=== PATIENT | female | born 1975 | race African-American/Black ===

== ENCOUNTER 2020-08-03 00:28 | Inpatient (IN) ==
[2020-08-03 01:19] LABS: Albumin 2.1 G/DL (3.4-5.0); Bilirubin,Total 0.6 MG/DL (0.2-1.0); Calcium 8.7 MG/DL (8.5-10.1); Osmolality,Calculated 293.7 MOS/KG (273-304); Potassium 5.2 MMOL/L (3.5-5.1); Total Protein 7.1 G/DL (5.0-7.5)
[2020-08-03] MEDS ORDERED: FUROSEMIDE 40 MG/4 ML VIAL IV STA ×2 (01:41→02:52)
[2020-08-03 01:46] LABS: Basophils % 0.3 % (0.0-0.8); Eosinophils # 0.1 10*3/uL (0.0-0.87); Eosinophils % 0.7 % (0.00-10.9); Hematocrit 23.8 VOL% (35.7-47.0); Hemoglobin 7.2 GM/DL (12.0-16.0); Immature Granulocytes % 0.4 %; Immature Granulocytes Absolute 0.05 #; Lymphocytes % 7.7 % (21.3-54.2); Mean Corpuscular HGB Conc 30.3 GM/DL (32-36); Mean Corpuscular Volume 90.5 FL (87-102); Mean Platelet Volume 11.7 FL (9.6-12.0); Monocytes % 6.5 % (1.7-12.7); NRBC # 0.07 10*3/uL; Neutrophils % 84.4 % (38.7-73.9); Platelet Count 356 T/CUMM (130-400); Red Blood Count 2.63 MC/CUMM (3.8-5.5); White Blood Count 13.1 T/CUMM (4-12)
[2020-08-03] MEDS ORDERED: ASPIRIN EC 325 MG TABLET PO STA (01:57)
[2020-08-03] MEDS ORDERED: NITROGLYCERIN SL 0.4 MG TABLET SL STA (01:57)
[2020-08-03] MEDS ORDERED: INSULIN REGULAR 100 UNIT/ML IV STA (01:59)
[2020-08-03] MEDS ORDERED: ENOXAPARIN 30 MG/0.3 ML SYRINGE SUBCUT STA (01:59)
[2020-08-03] MEDS ORDERED: ENOXAPARIN 100 MG/ML SYRINGE SUBCUT STA (02:00)
[2020-08-03] MEDS ORDERED: LABETALOL 20 MG/4 ML SYRINGE IV STA (02:53)
[2020-08-03] MEDS ORDERED: ACETAMINOPHEN 325 MG TABLET PO PRN (03:21)
[2020-08-03] MEDS ORDERED: DEXTROSE 50% 25 GM/50 ML VIAL IV PRN (03:21)
[2020-08-03] MEDS ORDERED: hydrALAZINE 20 MG/1 ML VIAL IV PRN (03:21)
[2020-08-03] MEDS ORDERED: guaiFENesin/DM ER 600-30 MG TABLET PO PRN (03:21)
[2020-08-03] MEDS ORDERED: NICOTINE 21 MG/24 HR PATCH TRANSDERM PRN (03:21)
[2020-08-03] MEDS ORDERED: diphenhydrAMINE CAP 25 MG CAPSULE PO PRN (03:21)
[2020-08-03] MEDS ORDERED: ONDANSETRON 4 MG/2 ML VIAL IV PRN (03:21)
[2020-08-03] MEDS ORDERED: GLUCAGON 1 MG VIAL IM PRN (03:21)
[2020-08-03] MEDS ORDERED: MORPHINE 4 MG/1 ML VIAL IV PRN (03:21)
[2020-08-03] MEDS ORDERED: ALUMINUM/MAGNES/SIMETH MAX STR 30 ML UDCUP PO PRN (03:21)
[2020-08-03] MEDS: INSULIN REGULAR 100 UNIT/ML SUBCUT SCH ×3 (06:31→17:19)
[2020-08-03] MEDS ORDERED: SODIUM CHLORIDE 0.9% 1,000 ML IV PRN (07:06)
[2020-08-03] MEDS ORDERED: NITROGLYCERIN SL 0.4 MG TABLET SL ONE (07:07)
[2020-08-03] MEDS: ALBUTEROL/IPRATROPIUM 3 ML NEB RESP TX SCH ×3 (07:30→19:08)
[2020-08-03] MEDS: FUROSEMIDE 20 MG/2 ML VIAL IV SCH ×2 (08:28→15:30)
[2020-08-03] MEDS: amLODIPine 10 MG TABLET PO SCH (08:28)
[2020-08-03] MEDS: carvediloL 3.125 MG TABLET PO SCH ×2 (11:14→20:14)
[2020-08-03 11:28] LABS: Barbiturates Screen,Urine Negative (Negative); Benzodiazepines Screen,Urine Negative (Negative); Cannabinoid Screen,Urine Negative (Negative); Opiate Screen,Urine Negative (Negative); Phencyclidine Screen,Urine Negative (Negative)
[2020-08-03 11:29] LABS: Amorphous Crystals,Urine Occasional /HPF (Few); Bacteria,Urine Occasional /HPF (Few); Bilirubin,Urine Negative (Negative); Blood, Urine Moderate mg/dL (Negative); Glucose,Urine (UA) 150 mg/dL (Negative); Ketones,Urine Negative (Negative); Mucus,Urine Occasional /LPF (Occasional); Nitrite,Urine Negative (Negative); Protein,Urine >=500 MG/DL; RBC,Urine 12 /HPF (0-4); Squamous Epithelial Cell,Urine Occasional /HPF (0-10); Urine Appearance Slightly Hazy (Clear); Urine Color Yellow (Yellow); Urine Specific Gravity 1.011 (1.001-1.035); Urine Urobilinogen < 2.0 EU/DL (0.2-1.0); WBC,Urine 39 /HPF (0-6)
[2020-08-03 11:30] LABS: Albumin 1.9 G/DL (3.4-5.0); Bilirubin,Total 0.5 MG/DL (0.2-1.0); Calcium 8.1 MG/DL (8.5-10.1); Osmolality,Calculated 293.5 MOS/KG (273-304); Potassium 5.7 MMOL/L (3.5-5.1); Total Protein 6.3 G/DL (5.0-7.5)
[2020-08-03 11:39] LABS: Risk Ratio 3.38; VLDL CHOLESTEROL 14.2 MG/DL
[2020-08-03 11:53] LABS: Folate 14.8 NG/ML (5.38-24.0); Vitamin B12 1302 PG/ML (211-911)
[2020-08-03 12:23] LABS: Basophils % 0.1 % (0.0-0.8); Eosinophils % 0.3 % (0.00-10.9); Hematocrit 23.9 VOL% (35.7-47.0); Immature Granulocytes % 0.4 %; Immature Granulocytes Absolute 0.04 #; Lymphocytes # 0.9 10*3/uL (1.4-4.0); Lymphocytes % 8.5 % (21.3-54.2); Mean Corpuscular HGB Conc 29.3 GM/DL (32-36); Mean Corpuscular Volume 91.6 FL (87-102); Mean Platelet Volume 11.4 FL (9.6-12.0); Monocytes % 6.4 % (1.7-12.7); NRBC # 0.08 10*3/uL; Neutrophils % 84.3 % (38.7-73.9); Platelet Count 319 T/CUMM (130-400); Red Blood Count 2.61 MC/CUMM (3.8-5.5); Red Cell Distribution Width 15.1 % (9.3-17.3); White Blood Count 10.4 T/CUMM (4-12)
[2020-08-03 13:23] LABS: Sedimentation Rate-Westergren 110 MM/HR (0-20)
[2020-08-03] MEDS ORDERED: SODIUM POLYSTYRENE SULFATE 15 GM/60 ML BOTTLE PO ONE (14:15)
[2020-08-03 15:03] LABS: Protein/Creatinine Ratio,Urine 3.6 RATIO
[2020-08-03 15:12] LABS: Anisocytosis 2+; Elliptocytes Few; Hypochromasia 1+; Macrocytosis 2+; Microcytosis 1+; Platelet Estimate Normal; Poikilocytosis 1+; Polychromasia 1+; Schistocytes Few; Target Cells 1+
[2020-08-03] MEDS: ATORVASTATIN 20 MG TABLET PO SCH (20:14)
[2020-08-04] MEDS: INSULIN REGULAR 100 UNIT/ML SUBCUT SCH ×5 (00:49→23:50)
[2020-08-04] MEDS: ALBUTEROL/IPRATROPIUM 3 ML NEB RESP TX SCH ×4 (02:57→20:09)
[2020-08-04] MEDS: ENOXAPARIN 100 MG/ML SYRINGE SUBCUT SCH (03:19)
[2020-08-04 04:29] LABS: Calcium 8.3 MG/DL (8.5-10.1); Osmolality,Calculated 291.5 MOS/KG (273-304); Potassium 4.9 MMOL/L (3.5-5.1)
[2020-08-04 04:30] LABS: Parathyroid Hormone Intact 683.4 PG/ML (18.4-80.1)
[2020-08-04] MEDS: carvediloL 3.125 MG TABLET PO SCH ×2 (08:17→20:13)
[2020-08-04] MEDS: FUROSEMIDE 20 MG/2 ML VIAL IV SCH (08:17)
[2020-08-04] MEDS: amLODIPine 10 MG TABLET PO SCH (08:17)
[2020-08-04 09:01] LABS: Basophils % 0.2 % (0.0-0.8); Eosinophils # 0.3 10*3/uL (0.0-0.87); Eosinophils % 1.9 % (0.00-10.9); Hematocrit 27.6 VOL% (35.7-47.0); Hemoglobin 8.4 GM/DL (12.0-16.0); Immature Granulocytes % 0.5 %; Immature Granulocytes Absolute 0.06 #; Lymphocytes % 7.8 % (21.3-54.2); Mean Corpuscular HGB Conc 30.4 GM/DL (32-36); Mean Platelet Volume 11.3 FL (9.6-12.0); Monocytes % 6.9 % (1.7-12.7); NRBC # 0.14 10*3/uL; Neutrophils % 82.7 % (38.7-73.9); Platelet Count 318 T/CUMM (130-400)
[2020-08-04 09:14] LABS: Calcium 8.6 MG/DL (8.5-10.1); Osmolality,Calculated 289.7 MOS/KG (273-304); Potassium 4.7 MMOL/L (3.5-5.1)
[2020-08-04] MEDS: ASPIRIN EC 81 MG TABLET PO SCH (11:20)
[2020-08-04] MEDS ORDERED: metOLazone 5 MG TABLET PO ONE (12:17)
[2020-08-04] MEDS ORDERED: FUROSEMIDE 40 MG/4 ML VIAL IV SCH (16:00)
[2020-08-04] MEDS: FUROSEMIDE 40 MG/4 ML VIAL IV SCH (16:09)
[2020-08-04] MEDS: hydrALAZINE 25 MG TABLET PO SCH ×2 (16:09→20:12)
[2020-08-04] MEDS: ATORVASTATIN 20 MG TABLET PO SCH (20:12)
[2020-08-05] MEDS: ALBUTEROL/IPRATROPIUM 3 ML NEB RESP TX SCH ×2 (01:15→07:20)
[2020-08-05] MEDS: ENOXAPARIN 100 MG/ML SYRINGE SUBCUT SCH (04:46)
[2020-08-05 06:06] LABS: Basophils % 0.2 % (0.0-0.8); Eosinophils # 0.1 10*3/uL (0.0-0.87); Eosinophils % 1.3 % (0.00-10.9); Hemoglobin 6.9 GM/DL (12.0-16.0); Immature Granulocytes % 0.5 %; Immature Granulocytes Absolute 0.06 #; Lymphocytes % 8.8 % (21.3-54.2); Mean Corpuscular HGB Conc 28.8 GM/DL (32-36); Mean Corpuscular Volume 95.2 FL (87-102); Mean Platelet Volume 12.4 FL (9.6-12.0); Monocytes % 7.9 % (1.7-12.7); NRBC # 0.07 10*3/uL; Neutrophils % 81.3 % (38.7-73.9); Platelet Count 155 T/CUMM (130-400); Red Blood Count 2.52 MC/CUMM (3.8-5.5); Red Cell Distribution Width 19.3 % (9.3-17.3)
[2020-08-05] MEDS: INSULIN REGULAR 100 UNIT/ML SUBCUT SCH ×4 (06:12→23:20)
[2020-08-05 06:28] LABS: Hypochromasia 2+; Microcytosis 1+; Polychromasia Slight
[2020-08-05 06:29] LABS: Platelet Estimate Adequate
[2020-08-05 09:03] LABS: Calcium 7.7 MG/DL (8.5-10.1); Osmolality,Calculated 294.4 MOS/KG (273-304); Potassium 5.1 MMOL/L (3.5-5.1)
[2020-08-05] MEDS: FUROSEMIDE 40 MG/4 ML VIAL IV SCH ×2 (09:51→16:05)
[2020-08-05] MEDS: ASPIRIN EC 81 MG TABLET PO SCH (09:51)
[2020-08-05] MEDS: hydrALAZINE 25 MG TABLET PO SCH ×3 (09:51→20:52)
[2020-08-05] MEDS: carvediloL 3.125 MG TABLET PO SCH ×2 (09:51→20:52)
[2020-08-05] MEDS ORDERED: SODIUM CHLORIDE 0.9% 1,000 ML IV PRN (13:34)
[2020-08-05 20:48] LABS: Hemoglobin 8.2 GM/DL (12.0-16.0)
[2020-08-05] MEDS: ATORVASTATIN 20 MG TABLET PO SCH (20:52)
[2020-08-06] MEDS: ENOXAPARIN 100 MG/ML SYRINGE SUBCUT SCH (03:29)
[2020-08-06 04:44] LABS: Basophils % 0.2 % (0.0-0.8); Eosinophils # 0.2 10*3/uL (0.0-0.87); Eosinophils % 1.9 % (0.00-10.9); Hematocrit 27.3 VOL% (35.7-47.0); Hemoglobin 8.3 GM/DL (12.0-16.0); Immature Granulocytes % 0.5 %; Immature Granulocytes Absolute 0.06 #; Lymphocytes # 0.8 10*3/uL (1.4-4.0); Lymphocytes % 6.4 % (21.3-54.2); Mean Corpuscular HGB Conc 30.4 GM/DL (32-36); Mean Corpuscular Volume 90.1 FL (87-102); Mean Platelet Volume 11.5 FL (9.6-12.0); Monocytes % 8.3 % (1.7-12.7); NRBC # 0.05 10*3/uL; Neutrophils % 82.7 % (38.7-73.9); Platelet Count 286 T/CUMM (130-400); Red Blood Count 3.03 MC/CUMM (3.8-5.5); Red Cell Distribution Width 15.6 % (9.3-17.3); White Blood Count 12.4 T/CUMM (4-12)
[2020-08-06 05:05] LABS: Calcium 8.5 MG/DL (8.5-10.1); Osmolality,Calculated 289.9 MOS/KG (273-304); Potassium 4.6 MMOL/L (3.5-5.1)
[2020-08-06] MEDS: INSULIN REGULAR 100 UNIT/ML SUBCUT SCH ×4 (05:26→23:41)
[2020-08-06 05:45] LABS: Hepatitis B Core IgM Quant 0.05 Index; Hepatitis B Surface Ag Quant < 0.10 Index; Hepatitis B Surface Ag Result Non-Reactive (NonReactive); Hepatitis C Virus Ab Quant 0.18 Index; Hepatitis C Virus Ab Result Non-Reactive (NonReactive)
[2020-08-06] MEDS: ASPIRIN EC 81 MG TABLET PO SCH (09:39)
[2020-08-06] MEDS: hydrALAZINE 25 MG TABLET PO SCH ×3 (09:39→21:34)
[2020-08-06] MEDS: carvediloL 3.125 MG TABLET PO SCH ×2 (09:39→21:34)
[2020-08-06] MEDS: FUROSEMIDE 40 MG/4 ML VIAL IV SCH ×2 (09:40→15:30)
[2020-08-06 13:03] LABS: Bacteria,Urine Many /HPF (Few); Bilirubin,Urine Negative (Negative); Blood, Urine Moderate mg/dL (Negative); Glucose,Urine (UA) Negative (Negative); Ketones,Urine Negative (Negative); Mucus,Urine Occasional /LPF (Occasional); Nitrite,Urine Negative (Negative); Protein,Urine 100 MG/DL; RBC,Urine 33 /HPF (0-4); Squamous Epithelial Cell,Urine Few /HPF (0-10); Urine Appearance CLOUDY (Clear); Urine Color Yellow (Yellow); Urine Urobilinogen < 2.0 EU/DL (0.2-1.0); WBC,Urine 86 /HPF (0-6)
[2020-08-06] MEDS ORDERED: MAGNESIUM SULF RIDER 2 GM in PREMIX 1 EACH IV ONE (15:08)
[2020-08-06] MEDS: cefTRIAXone 1,000 MG in SYRINGE 1 EACH IV SCH (15:33)
[2020-08-06 16:23] LABS: Total Protein 24 Hr Ur Result 3379 MG/24HR (0-149.1); Total Volume,Urine 1550 ML (400-2000)
[2020-08-06] MEDS: NYSTATIN CREAM 15 GM TUBE TOP SCH (21:33)
[2020-08-06] MEDS: ATORVASTATIN 20 MG TABLET PO SCH (21:34)
[2020-08-07] MEDS: ENOXAPARIN 100 MG/ML SYRINGE SUBCUT SCH (03:27)
[2020-08-07] MEDS: INSULIN REGULAR 100 UNIT/ML SUBCUT SCH ×4 (05:57→23:57)
[2020-08-07 06:09] LABS: Basophils % 0.3 % (0.0-0.8); Eosinophils # 0.2 10*3/uL (0.0-0.87); Eosinophils % 2.2 % (0.00-10.9); Hematocrit 25.9 VOL% (35.7-47.0); Hemoglobin 8.2 GM/DL (12.0-16.0); Immature Granulocytes % 0.6 %; Immature Granulocytes Absolute 0.06 #; Lymphocytes # 0.7 10*3/uL (1.4-4.0); Lymphocytes % 6.6 % (21.3-54.2); Mean Corpuscular HGB Conc 31.7 GM/DL (32-36); Mean Corpuscular Volume 88.1 FL (87-102); Mean Platelet Volume 11.5 FL (9.6-12.0); Monocytes % 10.2 % (1.7-12.7); NRBC # 0.02 10*3/uL; Neutrophils % 80.1 % (38.7-73.9); Platelet Count 278 T/CUMM (130-400); Red Blood Count 2.94 MC/CUMM (3.8-5.5); Red Cell Distribution Width 15.7 % (9.3-17.3); White Blood Count 10.6 T/CUMM (4-12)
[2020-08-07 06:48] LABS: Albumin 1.7 G/DL (3.4-5.0); Bilirubin,Total 1.4 MG/DL (0.2-1.0); Calcium 8.6 MG/DL (8.5-10.1); Osmolality,Calculated 295.7 MOS/KG (273-304); Potassium 4.5 MMOL/L (3.5-5.1); Total Protein 7.1 G/DL (6.4-8.2)
[2020-08-07 09:30] LABS: Alpha 1 (UPE) Rel % 4.8 %; Alpha 2 (UPE) Rel % 3.7 %; Beta (UPE) Rel % 10.6 %; Gamma (UPE) Rel % 23.9 %
[2020-08-07 09:36] LABS: Alpha 1 (UPE) 162.2 MG/24H; Beta (UPE) 358.2 MG/24H; Gamma (UPE) 807.6 MG/24H
[2020-08-07] MEDS: carvediloL 3.125 MG TABLET PO SCH ×2 (10:19→20:12)
[2020-08-07] MEDS: NYSTATIN CREAM 15 GM TUBE TOP SCH ×2 (10:19→20:12)
[2020-08-07] MEDS: ASPIRIN EC 81 MG TABLET PO SCH (10:19)
[2020-08-07] MEDS: hydrALAZINE 25 MG TABLET PO SCH ×3 (10:19→20:12)
[2020-08-07] MEDS: FUROSEMIDE 40 MG/4 ML VIAL IV SCH ×2 (10:20→15:17)
[2020-08-07 12:24] LABS: Myeloperoxidase Antibody < 0.2 U
[2020-08-07 15:15] LABS: Bacteria Wet Mount Moderate /HPF; Epithelial Cell Wet Mount Rare /HPF (Few/HPF); RBC Wet Mount Rare /HPF; Trichomonas Wet Mount None Seen /HPF (None Seen); WBC Wet Mount Few /HPF; Yeast Wet Mount Few /HPF (None Seen)
[2020-08-07 15:16] LABS: Clue Cells Rare /HPF (None Seen)
[2020-08-07] MEDS: cefTRIAXone 1,000 MG in SYRINGE 1 EACH IV SCH (15:20)
[2020-08-07] MEDS: ATORVASTATIN 20 MG TABLET PO SCH (20:12)
[2020-08-08] MEDS: ENOXAPARIN 100 MG/ML SYRINGE SUBCUT SCH (03:21)
[2020-08-08 06:39] LABS: Basophils % 0.2 % (0.0-0.8); Eosinophils # 0.3 10*3/uL (0.0-0.87); Eosinophils % 2.5 % (0.00-10.9); Hematocrit 25.8 VOL% (35.7-47.0); Hemoglobin 7.8 GM/DL (12.0-16.0); Immature Granulocytes % 0.5 %; Immature Granulocytes Absolute 0.05 #; Lymphocytes # 0.7 10*3/uL (1.4-4.0); Lymphocytes % 7.2 % (21.3-54.2); Mean Corpuscular HGB Conc 30.2 GM/DL (32-36); Mean Corpuscular Volume 89.9 FL (87-102); Mean Platelet Volume 11.2 FL (9.6-12.0); Monocytes % 10.4 % (1.7-12.7); Neutrophils % 79.2 % (38.7-73.9); Platelet Count 276 T/CUMM (130-400); Red Blood Count 2.87 MC/CUMM (3.8-5.5); Red Cell Distribution Width 15.9 % (9.3-17.3); White Blood Count 10.1 T/CUMM (4-12)
[2020-08-08 06:57] LABS: Calcium 8.2 MG/DL (8.5-10.1); Osmolality,Calculated 305.7 MOS/KG (273-304); Potassium 4.8 MMOL/L (3.5-5.1)
[2020-08-08] MEDS: INSULIN REGULAR 100 UNIT/ML SUBCUT SCH ×3 (10:21→18:18)
[2020-08-08] MEDS: hydrALAZINE 25 MG TABLET PO SCH ×3 (10:21→20:12)
[2020-08-08] MEDS: ASPIRIN EC 81 MG TABLET PO SCH (10:21)
[2020-08-08] MEDS: NYSTATIN CREAM 15 GM TUBE TOP SCH ×2 (10:22→20:12)
[2020-08-08] MEDS: carvediloL 3.125 MG TABLET PO SCH ×2 (10:22→20:12)
[2020-08-08] MEDS: FUROSEMIDE 40 MG/4 ML VIAL IV SCH ×3 (10:25→18:19)
[2020-08-08] MEDS: INSULIN GLARGINE 100 UNIT/ML SUBCUT SCH (12:09)
[2020-08-08] MEDS: ATORVASTATIN 20 MG TABLET PO SCH (20:12)
[2020-08-09] MEDS: INSULIN REGULAR 100 UNIT/ML SUBCUT SCH ×4 (00:44→18:04)
[2020-08-09] MEDS: ENOXAPARIN 100 MG/ML SYRINGE SUBCUT SCH (03:28)
[2020-08-09 05:45] LABS: Basophils % 0.2 % (0.0-0.8); Eosinophils # 0.3 10*3/uL (0.0-0.87); Hematocrit 25.5 VOL% (35.7-47.0); Hemoglobin 7.7 GM/DL (12.0-16.0); Immature Granulocytes % 0.5 %; Immature Granulocytes Absolute 0.05 #; Lymphocytes # 0.7 10*3/uL (1.4-4.0); Lymphocytes % 7.1 % (21.3-54.2); Mean Corpuscular HGB Conc 30.2 GM/DL (32-36); Mean Corpuscular Volume 91.1 FL (87-102); Mean Platelet Volume 11.8 FL (9.6-12.0); Neutrophils % 78.2 % (38.7-73.9); Platelet Count 286 T/CUMM (130-400); White Blood Count 9.2 T/CUMM (4-12)
[2020-08-09 05:48] LABS: Calcium 8.5 MG/DL (8.5-10.1); Osmolality,Calculated 304.7 MOS/KG (273-304); Potassium 4.7 MMOL/L (3.5-5.1)
[2020-08-09 05:50] LABS: Albumin 1.7 G/DL (3.4-5.0); Bilirubin,Total 0.6 MG/DL (0.2-1.0); Calcium 8.6 MG/DL (8.5-10.1); Osmolality,Calculated 303.7 MOS/KG (273-304); Potassium 4.9 MMOL/L (3.5-5.1)
[2020-08-09] MEDS: INSULIN GLARGINE 100 UNIT/ML SUBCUT SCH (09:26)
[2020-08-09] MEDS: ASPIRIN EC 81 MG TABLET PO SCH (09:27)
[2020-08-09] MEDS: hydrALAZINE 25 MG TABLET PO SCH ×3 (09:27→21:15)
[2020-08-09] MEDS: carvediloL 3.125 MG TABLET PO SCH ×2 (09:27→21:15)
[2020-08-09] MEDS: FUROSEMIDE 40 MG/4 ML VIAL IV SCH ×3 (09:27→15:34)
[2020-08-09] MEDS: NYSTATIN CREAM 15 GM TUBE TOP SCH ×2 (09:45→21:17)
[2020-08-09] MEDS: CLOPIDOGREL 75 MG TABLET PO SCH (13:19)
[2020-08-09] MEDS: ATORVASTATIN 20 MG TABLET PO SCH (21:15)
[2020-08-10] MEDS: INSULIN REGULAR 100 UNIT/ML SUBCUT SCH ×4 (00:42→18:05)
[2020-08-10 04:59] LABS: Basophils % 0.4 % (0.0-0.8); Eosinophils # 0.3 10*3/uL (0.0-0.87); Eosinophils % 3.6 % (0.00-10.9); Hematocrit 25.7 VOL% (35.7-47.0); Hemoglobin 7.9 GM/DL (12.0-16.0); Immature Granulocytes % 0.5 %; Immature Granulocytes Absolute 0.04 #; Lymphocytes # 0.8 10*3/uL (1.4-4.0); Lymphocytes % 9.8 % (21.3-54.2); Mean Corpuscular HGB Conc 30.7 GM/DL (32-36); Mean Corpuscular Volume 89.5 FL (87-102); Mean Platelet Volume 11.6 FL (9.6-12.0); Monocytes % 11.4 % (1.7-12.7); Neutrophils % 74.3 % (38.7-73.9); Platelet Count 272 T/CUMM (130-400); Red Blood Count 2.87 MC/CUMM (3.8-5.5); Red Cell Distribution Width 15.9 % (9.3-17.3)
[2020-08-10 05:24] LABS: Calcium 8.7 MG/DL (8.5-10.1); Osmolality,Calculated 302.5 MOS/KG (273-304); Potassium 4.4 MMOL/L (3.5-5.1)
[2020-08-10] MEDS: ENOXAPARIN 100 MG/ML SYRINGE SUBCUT SCH (06:17)
[2020-08-10] MEDS: INSULIN GLARGINE 100 UNIT/ML SUBCUT SCH (08:30)
[2020-08-10] MEDS: FUROSEMIDE 40 MG/4 ML VIAL IV SCH ×3 (08:30→15:48)
[2020-08-10] MEDS: NYSTATIN CREAM 15 GM TUBE TOP SCH ×2 (08:31→21:35)
[2020-08-10] MEDS: ASPIRIN EC 81 MG TABLET PO SCH (08:31)
[2020-08-10] MEDS: carvediloL 3.125 MG TABLET PO SCH ×2 (08:31→21:33)
[2020-08-10] MEDS: CLOPIDOGREL 75 MG TABLET PO SCH (08:31)
[2020-08-10] MEDS: hydrALAZINE 25 MG TABLET PO SCH ×3 (08:31→21:33)
[2020-08-10] MEDS: ALBUTEROL/IPRATROPIUM 3 ML NEB RESP TX PRN ×2 (13:00→19:00)
[2020-08-10] MEDS: ATORVASTATIN 20 MG TABLET PO SCH (21:33)
[2020-08-11] MEDS: INSULIN REGULAR 100 UNIT/ML SUBCUT SCH ×4 (00:47→18:01)
[2020-08-11 05:56] LABS: Basophils % 0.3 % (0.0-0.8); Eosinophils # 0.2 10*3/uL (0.0-0.87); Eosinophils % 2.9 % (0.00-10.9); Hematocrit 26.1 VOL% (35.7-47.0); Hemoglobin 7.7 GM/DL (12.0-16.0); Immature Granulocytes % 0.5 %; Immature Granulocytes Absolute 0.04 #; Lymphocytes # 0.9 10*3/uL (1.4-4.0); Mean Corpuscular HGB Conc 29.5 GM/DL (32-36); Mean Corpuscular Volume 91.3 FL (87-102); Mean Platelet Volume 11.1 FL (9.6-12.0); Monocytes % 10.5 % (1.7-12.7); Neutrophils % 74.8 % (38.7-73.9); Platelet Count 295 T/CUMM (130-400); Red Blood Count 2.86 MC/CUMM (3.8-5.5); Red Cell Distribution Width 16.3 % (9.3-17.3); White Blood Count 7.8 T/CUMM (4-12)
[2020-08-11] MEDS: ENOXAPARIN 100 MG/ML SYRINGE SUBCUT SCH (06:14)
[2020-08-11 06:37] LABS: Uric Acid 13.5 MG/DL (2.6-6.0)
[2020-08-11 06:57] LABS: Calcium 8.7 MG/DL (8.5-10.1); Osmolality,Calculated 301.7 MOS/KG (273-304); Potassium 4.5 MMOL/L (3.5-5.1)
[2020-08-11 08:23] LABS: Protein/Creatinine Ratio,Urine 2.6 RATIO
[2020-08-11] MEDS: ALBUTEROL/IPRATROPIUM 3 ML NEB RESP TX PRN ×2 (08:44→14:28)
[2020-08-11] MEDS: INSULIN GLARGINE 100 UNIT/ML SUBCUT SCH (09:02)
[2020-08-11] MEDS: FUROSEMIDE 40 MG/4 ML VIAL IV SCH ×4 (09:02→16:46)
[2020-08-11] MEDS: carvediloL 3.125 MG TABLET PO SCH ×2 (09:03→20:40)
[2020-08-11] MEDS: ASPIRIN EC 81 MG TABLET PO SCH (09:03)
[2020-08-11] MEDS: CLOPIDOGREL 75 MG TABLET PO SCH (09:03)
[2020-08-11] MEDS: hydrALAZINE 25 MG TABLET PO SCH ×3 (09:03→20:40)
[2020-08-11] MEDS: NYSTATIN CREAM 15 GM TUBE TOP SCH ×2 (09:04→20:40)
[2020-08-11 11:50] LABS: Bacteria,Urine Many /HPF (Few); Bilirubin,Urine Negative (Negative); Blood, Urine Large mg/dL (Negative); Glucose,Urine (UA) 50 mg/dL (Negative); Ketones,Urine Negative (Negative); Nitrite,Urine Negative (Negative); Protein,Urine 100 MG/DL; RBC,Urine 446 /HPF (0-4); Squamous Epithelial Cell,Urine Many /HPF (0-10); Urine Appearance CLOUDY (Clear); Urine Color Yellow (Yellow); Urine Specific Gravity 1.009 (1.001-1.035); Urine Urobilinogen < 2.0 EU/DL (0.2-1.0); WBC,Urine 215 /HPF (0-6)
[2020-08-11] MEDS ORDERED: cefTRIAXone 1,000 MG in SYRINGE 1 EACH IV SCH (13:30)
[2020-08-11] MEDS: FUROSEMIDE INJ 100 MG in SODIUM CHLORIDE 0.9% 90 ML IV SCH (17:07)
[2020-08-11] MEDS: SEVELAMER CARBONATE 800 MG TABLET PO SCH (17:11)
[2020-08-11] MEDS: ATORVASTATIN 20 MG TABLET PO SCH (20:40)
[2020-08-12] MEDS: INSULIN REGULAR 100 UNIT/ML SUBCUT SCH ×5 (00:36→23:43)
[2020-08-12] MEDS: FUROSEMIDE INJ 100 MG in SODIUM CHLORIDE 0.9% 90 ML IV SCH ×3 (03:18→22:06)
[2020-08-12] MEDS: ENOXAPARIN 100 MG/ML SYRINGE SUBCUT SCH (03:18)
[2020-08-12 04:10] LABS: ABG Base Excess -5.9 MMOL/L (-2.5-2.5); ABG HCO3 18.1 MMOL/L (20-26); ABG PCO2 31.6 MM HG (35-48); ABG PH 7.375 (7.35-7.45); ABG PO2 125.6 MM HG (80-95); Allen Test Positive
[2020-08-12 04:11] LABS: ABG Oxygen Saturation 98.5 % (95-100)
[2020-08-12 05:50] LABS: Basophils % 0.6 % (0.0-0.8); Eosinophils # 0.2 10*3/uL (0.0-0.87); Eosinophils % 2.9 % (0.00-10.9); Hematocrit 26.1 VOL% (35.7-47.0); Hemoglobin 7.5 GM/DL (12.0-16.0); Immature Granulocytes % 0.6 %; Immature Granulocytes Absolute 0.04 #; Lymphocytes # 0.8 10*3/uL (1.4-4.0); Lymphocytes % 11.3 % (21.3-54.2); Mean Corpuscular HGB Conc 28.7 GM/DL (32-36); Mean Corpuscular Volume 94.2 FL (87-102); Mean Platelet Volume 12.6 FL (9.6-12.0); Monocytes % 9.2 % (1.7-12.7); Neutrophils % 75.4 % (38.7-73.9); Platelet Count 156 T/CUMM (130-400); Red Blood Count 2.77 MC/CUMM (3.8-5.5); Red Cell Distribution Width 16.6 % (9.3-17.3); White Blood Count 7.2 T/CUMM (4-12)
[2020-08-12 06:20] LABS: Calcium 8.7 MG/DL (8.5-10.1); Osmolality,Calculated 301.5 MOS/KG (273-304); Potassium 5.1 MMOL/L (3.5-5.1)
[2020-08-12 06:42] LABS: Hypochromasia 1+; Microcytosis 1+
[2020-08-12] MEDS: hydrALAZINE 25 MG TABLET PO SCH ×3 (10:01→20:13)
[2020-08-12] MEDS: SEVELAMER CARBONATE 800 MG TABLET PO SCH ×3 (10:01→18:35)
[2020-08-12] MEDS: carvediloL 3.125 MG TABLET PO SCH ×2 (10:01→20:13)
[2020-08-12] MEDS: CLOPIDOGREL 75 MG TABLET PO SCH (10:01)
[2020-08-12] MEDS: ASPIRIN EC 81 MG TABLET PO SCH (10:01)
[2020-08-12] MEDS: INSULIN GLARGINE 100 UNIT/ML SUBCUT SCH (10:02)
[2020-08-12] MEDS: NYSTATIN CREAM 15 GM TUBE TOP SCH ×2 (13:38→20:13)
[2020-08-12] MEDS: ISOSORBIDE MONONITRATE 30 MG TABLET PO SCH (13:50)
[2020-08-12] MEDS: ATORVASTATIN 20 MG TABLET PO SCH (20:13)
[2020-08-13] MEDS: ENOXAPARIN 100 MG/ML SYRINGE SUBCUT SCH (03:11)
[2020-08-13] MEDS: INSULIN REGULAR 100 UNIT/ML SUBCUT SCH ×3 (05:55→18:01)
[2020-08-13 08:56] LABS: Osmolality,Calculated 310.1 MOS/KG (273-304); Potassium 4.6 MMOL/L (3.5-5.1)
[2020-08-13] MEDS: ASPIRIN EC 81 MG TABLET PO SCH (10:52)
[2020-08-13] MEDS: CLOPIDOGREL 75 MG TABLET PO SCH (10:52)
[2020-08-13] MEDS: hydrALAZINE 25 MG TABLET PO SCH ×3 (10:53→20:21)
[2020-08-13] MEDS: NYSTATIN CREAM 15 GM TUBE TOP SCH ×2 (10:53→20:22)
[2020-08-13] MEDS: SEVELAMER CARBONATE 800 MG TABLET PO SCH ×3 (10:53→18:01)
[2020-08-13] MEDS: ISOSORBIDE MONONITRATE 30 MG TABLET PO SCH (10:53)
[2020-08-13] MEDS: carvediloL 3.125 MG TABLET PO SCH ×2 (10:53→20:21)
[2020-08-13] MEDS: INSULIN GLARGINE 100 UNIT/ML SUBCUT SCH (10:54)
[2020-08-13] MEDS: FUROSEMIDE INJ 100 MG in SODIUM CHLORIDE 0.9% 90 ML IV SCH ×2 (10:54→20:22)
[2020-08-13 14:36] LABS: Bilirubin,Urine Negative (Negative); Blood, Urine Moderate mg/dL (Negative); Glucose,Urine (UA) Negative (Negative); Ketones,Urine Negative (Negative); Nitrite,Urine Negative (Negative); Protein,Urine 100 MG/DL; RBC,Urine 179 /HPF (0-4); Squamous Epithelial Cell,Urine Few /HPF (0-10); Urine Appearance CLOUDY (Clear); Urine Color Yellow (Yellow); Urine Urobilinogen < 2.0 EU/DL (0.2-1.0); WBC,Urine 65 /HPF (0-6)
[2020-08-13] MEDS: ATORVASTATIN 20 MG TABLET PO SCH (20:21)
[2020-08-14] MEDS: INSULIN REGULAR 100 UNIT/ML SUBCUT SCH ×4 (00:12→17:20)
[2020-08-14] MEDS: ENOXAPARIN 100 MG/ML SYRINGE SUBCUT SCH (03:26)
[2020-08-14] MEDS: FUROSEMIDE INJ 100 MG in SODIUM CHLORIDE 0.9% 90 ML IV SCH ×4 (06:03→21:15)
[2020-08-14 07:27] LABS: Basophils % 0.2 % (0.0-0.8); Eosinophils # 0.2 10*3/uL (0.0-0.87); Eosinophils % 1.9 % (0.00-10.9); Hematocrit 26.6 VOL% (35.7-47.0); Immature Granulocytes % 0.6 %; Immature Granulocytes Absolute 0.05 #; Lymphocytes # 0.6 10*3/uL (1.4-4.0); Lymphocytes % 6.4 % (21.3-54.2); Mean Corpuscular HGB Conc 28.6 GM/DL (32-36); Mean Corpuscular Volume 95.7 FL (87-102); Mean Platelet Volume 11.2 FL (9.6-12.0); Monocytes % 7.5 % (1.7-12.7); Neutrophils % 83.4 % (38.7-73.9); Platelet Count 308 T/CUMM (130-400); Red Blood Count 2.78 MC/CUMM (3.8-5.5); Red Cell Distribution Width 16.9 % (9.3-17.3); White Blood Count 8.6 T/CUMM (4-12)
[2020-08-14 07:28] LABS: Calcium 8.6 MG/DL (8.5-10.1); Hemoglobin 7.6 GM/DL (12.0-16.0); Potassium 4.7 MMOL/L (3.5-5.1)
[2020-08-14 08:54] LABS: Hypochromasia 1+; Microcytosis 1+; Ovalocytes Slight; Platelet Estimate Adequate
[2020-08-14] MEDS: CLOPIDOGREL 75 MG TABLET PO SCH (09:56)
[2020-08-14] MEDS: SEVELAMER CARBONATE 800 MG TABLET PO SCH ×3 (09:56→17:49)
[2020-08-14] MEDS: ISOSORBIDE MONONITRATE 30 MG TABLET PO SCH (09:56)
[2020-08-14] MEDS: carvediloL 3.125 MG TABLET PO SCH ×2 (09:56→21:13)
[2020-08-14] MEDS: hydrALAZINE 25 MG TABLET PO SCH ×3 (09:56→21:13)
[2020-08-14] MEDS: ASPIRIN EC 81 MG TABLET PO SCH (09:56)
[2020-08-14] MEDS: INSULIN GLARGINE 100 UNIT/ML SUBCUT SCH (09:56)
[2020-08-14] MEDS: NYSTATIN CREAM 15 GM TUBE TOP SCH ×2 (10:06→21:14)
[2020-08-14] MEDS: ATORVASTATIN 20 MG TABLET PO SCH (21:13)
[2020-08-15] MEDS: INSULIN REGULAR 100 UNIT/ML SUBCUT SCH ×4 (00:23→17:59)
[2020-08-15] MEDS: ENOXAPARIN 100 MG/ML SYRINGE SUBCUT SCH (04:49)
[2020-08-15] MEDS: FUROSEMIDE INJ 100 MG in SODIUM CHLORIDE 0.9% 90 ML IV SCH ×4 (05:47→23:38)
[2020-08-15 07:29] LABS: Calcium 8.8 MG/DL (8.5-10.1); Potassium 4.6 MMOL/L (3.5-5.1)
[2020-08-15] MEDS: ASPIRIN EC 81 MG TABLET PO SCH (10:25)
[2020-08-15] MEDS: INSULIN GLARGINE 100 UNIT/ML SUBCUT SCH (10:25)
[2020-08-15] MEDS: NYSTATIN CREAM 15 GM TUBE TOP SCH ×2 (10:26→20:34)
[2020-08-15] MEDS: CLOPIDOGREL 75 MG TABLET PO SCH (10:26)
[2020-08-15] MEDS: hydrALAZINE 25 MG TABLET PO SCH ×3 (10:26→20:34)
[2020-08-15] MEDS: ISOSORBIDE MONONITRATE 30 MG TABLET PO SCH (10:26)
[2020-08-15] MEDS: carvediloL 3.125 MG TABLET PO SCH ×2 (10:26→20:34)
[2020-08-15] MEDS: SEVELAMER CARBONATE 800 MG TABLET PO SCH ×3 (10:26→17:28)
[2020-08-15] MEDS: ATORVASTATIN 20 MG TABLET PO SCH (20:34)
[2020-08-16] MEDS: INSULIN REGULAR 100 UNIT/ML SUBCUT SCH ×4 (00:22→17:35)
[2020-08-16] MEDS: ENOXAPARIN 100 MG/ML SYRINGE SUBCUT SCH (03:20)
[2020-08-16] MEDS: FUROSEMIDE INJ 100 MG in SODIUM CHLORIDE 0.9% 90 ML IV SCH ×6 (05:14→22:21)
[2020-08-16 07:35] LABS: Basophils % 0.4 % (0.0-0.8); Eosinophils # 0.2 10*3/uL (0.0-0.87); Hematocrit 25.5 VOL% (35.7-47.0); Hemoglobin 7.6 GM/DL (12.0-16.0); Immature Granulocytes % 0.7 %; Immature Granulocytes Absolute 0.05 #; Lymphocytes # 0.8 10*3/uL (1.4-4.0); Lymphocytes % 11.6 % (21.3-54.2); Mean Corpuscular HGB Conc 29.8 GM/DL (32-36); Mean Corpuscular Volume 93.1 FL (87-102); Mean Platelet Volume 10.8 FL (9.6-12.0); Monocytes % 8.5 % (1.7-12.7); Neutrophils % 75.8 % (38.7-73.9); Platelet Count 380 T/CUMM (130-400); Red Blood Count 2.74 MC/CUMM (3.8-5.5); Red Cell Distribution Width 17.2 % (9.3-17.3); White Blood Count 6.9 T/CUMM (4-12)
[2020-08-16 07:52] LABS: Calcium 8.9 MG/DL (8.5-10.1); Potassium 4.6 MMOL/L (3.5-5.1)
[2020-08-16] MEDS: SEVELAMER CARBONATE 800 MG TABLET PO SCH ×3 (09:16→17:12)
[2020-08-16] MEDS: ASPIRIN EC 81 MG TABLET PO SCH (10:33)
[2020-08-16] MEDS: CLOPIDOGREL 75 MG TABLET PO SCH (10:37)
[2020-08-16] MEDS: NYSTATIN CREAM 15 GM TUBE TOP SCH ×2 (10:38→20:34)
[2020-08-16] MEDS: hydrALAZINE 25 MG TABLET PO SCH ×3 (10:38→20:34)
[2020-08-16] MEDS: INSULIN GLARGINE 100 UNIT/ML SUBCUT SCH (11:00)
[2020-08-16 11:01] LABS: Hepatitis B Surface Ag Quant < 0.10 Index; Hepatitis B Surface Ag Result Non-Reactive (NonReactive); Hepatitis C Virus Ab Quant 0.24 Index; Hepatitis C Virus Ab Result Non-Reactive (NonReactive)
[2020-08-16] MEDS ORDERED: ceFAZolin 1,000 MG in SYRINGE 1 EACH IV ONE (12:00)
[2020-08-16] MEDS ORDERED: BUPIVACAINE MPF 0.25% 30 ML VIAL ONE (12:03)
[2020-08-16] MEDS ORDERED: HEPARIN 5,000 UNIT/1 ML VIAL ONE (12:03)
[2020-08-16] MEDS ORDERED: LIDOCAINE 1% 20 ML VIAL ONE (12:04)
[2020-08-16] MEDS ORDERED: SODIUM CHLORIDE 0.9% 250 ML IV SCH (12:30)
[2020-08-16] MEDS ORDERED: LIDOCAINE 2% 5 ML VIAL ONE (12:33)
[2020-08-16] MEDS ORDERED: MIDAZOLAM 2 MG/2 ML VIAL ONE ×2 (12:33→13:01)
[2020-08-16] MEDS ORDERED: propofoL 200 MG/20 ML VIAL IV ONE (12:33)
[2020-08-16] MEDS ORDERED: fentaNYL 100 MCG/2 ML VIAL ONE (12:33)
[2020-08-16] MEDS ORDERED: ceFAZolin 1,000 MG VIAL ONE (12:48)
[2020-08-16] MEDS ORDERED: TISSUE ADHESIVE 1 EACH APPLICATOR TOP ONE (13:11)
[2020-08-16] MEDS: carvediloL 3.125 MG TABLET PO SCH ×2 (13:32→20:34)
[2020-08-16] MEDS: ISOSORBIDE MONONITRATE 30 MG TABLET PO SCH (13:32)
[2020-08-16] MEDS: ATORVASTATIN 20 MG TABLET PO SCH (20:34)
[2020-08-17] MEDS: INSULIN REGULAR 100 UNIT/ML SUBCUT SCH ×4 (00:53→17:50)
[2020-08-17] MEDS: FUROSEMIDE INJ 100 MG in SODIUM CHLORIDE 0.9% 90 ML IV SCH ×6 (04:05→21:31)
[2020-08-17] MEDS: ENOXAPARIN 100 MG/ML SYRINGE SUBCUT SCH (04:06)
[2020-08-17 05:24] LABS: Calcium 8.6 MG/DL (8.5-10.1); Osmolality,Calculated 308.8 MOS/KG (273-304); Potassium 4.5 MMOL/L (3.5-5.1)
[2020-08-17] MEDS: INSULIN GLARGINE 100 UNIT/ML SUBCUT SCH ×2 (09:10→09:18)
[2020-08-17] MEDS: carvediloL 3.125 MG TABLET PO SCH ×2 (09:11→20:21)
[2020-08-17] MEDS: SEVELAMER CARBONATE 800 MG TABLET PO SCH ×3 (09:11→17:50)
[2020-08-17] MEDS: ISOSORBIDE MONONITRATE 30 MG TABLET PO SCH (09:11)
[2020-08-17] MEDS: hydrALAZINE 25 MG TABLET PO SCH ×3 (09:11→20:21)
[2020-08-17] MEDS: CLOPIDOGREL 75 MG TABLET PO SCH (09:11)
[2020-08-17] MEDS: ASPIRIN EC 81 MG TABLET PO SCH (09:11)
[2020-08-17] MEDS: NYSTATIN CREAM 15 GM TUBE TOP SCH ×2 (09:12→20:21)
[2020-08-17] MEDS ORDERED: HEPARIN 10,000 UNIT/10 ML VIAL IV SCH (12:30)
[2020-08-17] MEDS: ATORVASTATIN 20 MG TABLET PO SCH (20:21)
[2020-08-17] MEDS ORDERED: MAGNESIUM CITRATE 300 ML BOTTLE PO ONE (20:43)
[2020-08-17] MEDS: DOCUSATE SODIUM 100 MG CAPSULE PO SCH (21:02)
[2020-08-18] MEDS: INSULIN REGULAR 100 UNIT/ML SUBCUT SCH ×4 (01:35→17:17)
[2020-08-18] MEDS: FUROSEMIDE INJ 100 MG in SODIUM CHLORIDE 0.9% 90 ML IV SCH ×5 (03:37→20:54)
[2020-08-18] MEDS: ENOXAPARIN 100 MG/ML SYRINGE SUBCUT SCH (03:38)
[2020-08-18 06:10] LABS: Calcium 8.5 MG/DL (8.5-10.1); Osmolality,Calculated 299.8 MOS/KG (273-304); Potassium 4.1 MMOL/L (3.5-5.1)
[2020-08-18] MEDS: ASPIRIN EC 81 MG TABLET PO SCH (09:16)
[2020-08-18] MEDS: SEVELAMER CARBONATE 800 MG TABLET PO SCH ×3 (09:16→17:19)
[2020-08-18] MEDS: hydrALAZINE 25 MG TABLET PO SCH ×3 (09:16→20:55)
[2020-08-18] MEDS: CLOPIDOGREL 75 MG TABLET PO SCH (09:16)
[2020-08-18] MEDS: ISOSORBIDE MONONITRATE 30 MG TABLET PO SCH (09:16)
[2020-08-18] MEDS: carvediloL 3.125 MG TABLET PO SCH ×2 (09:16→20:55)
[2020-08-18] MEDS: NYSTATIN CREAM 15 GM TUBE TOP SCH ×2 (09:17→20:58)
[2020-08-18] MEDS: DOCUSATE SODIUM 100 MG CAPSULE PO SCH ×2 (09:17→20:55)
[2020-08-18] MEDS: INSULIN GLARGINE 100 UNIT/ML SUBCUT SCH (12:44)
[2020-08-18] MEDS: ATORVASTATIN 20 MG TABLET PO SCH (20:55)
[2020-08-19] MEDS ORDERED: INSULIN REGULAR 100 UNIT/ML ONE (00:30)
[2020-08-19] MEDS: INSULIN REGULAR 100 UNIT/ML SUBCUT SCH ×5 (00:32→23:48)
[2020-08-19] MEDS: FUROSEMIDE INJ 100 MG in SODIUM CHLORIDE 0.9% 90 ML IV SCH ×3 (01:26→13:45)
[2020-08-19] MEDS: ENOXAPARIN 100 MG/ML SYRINGE SUBCUT SCH (04:55)
[2020-08-19 07:18] LABS: Basophils % 0.5 % (0.0-0.8); Eosinophils # 0.2 10*3/uL (0.0-0.87); Eosinophils % 3.1 % (0.00-10.9); Hematocrit 23.6 VOL% (35.7-47.0); Hemoglobin 6.9 GM/DL (12.0-16.0); Immature Granulocytes % 0.6 %; Immature Granulocytes Absolute 0.04 #; Lymphocytes # 0.7 10*3/uL (1.4-4.0); Lymphocytes % 10.9 % (21.3-54.2); Mean Corpuscular HGB Conc 29.2 GM/DL (32-36); Mean Platelet Volume 10.8 FL (9.6-12.0); Neutrophils % 76.9 % (38.7-73.9); Platelet Count 384 T/CUMM (130-400); Red Blood Count 2.51 MC/CUMM (3.8-5.5); Red Cell Distribution Width 17.7 % (9.3-17.3); White Blood Count 6.4 T/CUMM (4-12)
[2020-08-19 07:44] LABS: Calcium 9.2 MG/DL (8.5-10.1); Eosinophils 3 % (0-10); Hypochromasia 2+; Lymphocytes 7 % (20-55); Microcytosis 1+; Osmolality,Calculated 299.8 MOS/KG (273-304); Ovalocytes Slight; Platelet Estimate Adequate; Potassium 4.5 MMOL/L (3.5-5.1); Segmented Neutrophils 85 % (50-85); Total Cells Counted 100
[2020-08-19] MEDS: CLOPIDOGREL 75 MG TABLET PO SCH (09:52)
[2020-08-19] MEDS: hydrALAZINE 25 MG TABLET PO SCH ×3 (09:52→21:40)
[2020-08-19] MEDS: SEVELAMER CARBONATE 800 MG TABLET PO SCH ×3 (09:52→16:51)
[2020-08-19] MEDS: ASPIRIN EC 81 MG TABLET PO SCH (09:52)
[2020-08-19] MEDS: DOCUSATE SODIUM 100 MG CAPSULE PO SCH ×2 (09:52→21:40)
[2020-08-19] MEDS: carvediloL 3.125 MG TABLET PO SCH ×2 (09:52→21:40)
[2020-08-19] MEDS: ISOSORBIDE MONONITRATE 30 MG TABLET PO SCH (09:52)
[2020-08-19] MEDS: INSULIN GLARGINE 100 UNIT/ML SUBCUT SCH (09:53)
[2020-08-19] MEDS: NYSTATIN CREAM 15 GM TUBE TOP SCH ×2 (09:53→21:40)
[2020-08-19] MEDS: ATORVASTATIN 20 MG TABLET PO SCH (21:40)
[2020-08-20 04:30] LABS: Calcium 8.8 MG/DL (8.5-10.1); Osmolality,Calculated 289.1 MOS/KG (273-304); Potassium 4.3 MMOL/L (3.5-5.1)
[2020-08-20 04:43] LABS: Basophils % 0.6 % (0.0-0.8); Eosinophils # 0.3 10*3/uL (0.0-0.87); Hematocrit 29.9 VOL% (35.7-47.0); Immature Granulocytes % 0.5 %; Immature Granulocytes Absolute 0.03 #; Lymphocytes # 0.8 10*3/uL (1.4-4.0); Lymphocytes % 12.1 % (21.3-54.2); Mean Corpuscular HGB Conc 27.8 GM/DL (32-36); Mean Corpuscular Volume 96.1 FL (87-102); Mean Platelet Volume 10.5 FL (9.6-12.0); Monocytes % 9.2 % (1.7-12.7); Neutrophils % 73.6 % (38.7-73.9); Platelet Count 346 T/CUMM (130-400); Red Blood Count 3.11 MC/CUMM (3.8-5.5); Red Cell Distribution Width 19.6 % (9.3-17.3); White Blood Count 6.4 T/CUMM (4-12)
[2020-08-20 04:44] LABS: Hemoglobin 8.3 GM/DL (12.0-16.0)
[2020-08-20] MEDS: INSULIN REGULAR 100 UNIT/ML SUBCUT SCH ×3 (05:53→18:32)
[2020-08-20] MEDS: DOCUSATE SODIUM 100 MG CAPSULE PO SCH ×2 (08:05→20:41)
[2020-08-20] MEDS: SEVELAMER CARBONATE 800 MG TABLET PO SCH ×3 (08:05→16:01)
[2020-08-20] MEDS: INSULIN GLARGINE 100 UNIT/ML SUBCUT SCH (08:06)
[2020-08-20] MEDS ORDERED: diphenhydrAMINE CAP 25 MG CAPSULE PO ONE (09:00)
[2020-08-20] MEDS ORDERED: DIAZEPAM 5 MG TABLET PO ONE (09:00)
[2020-08-20] MEDS: ISOSORBIDE MONONITRATE 30 MG TABLET PO SCH (09:35)
[2020-08-20] MEDS: ASPIRIN EC 81 MG TABLET PO SCH (09:35)
[2020-08-20] MEDS: CLOPIDOGREL 75 MG TABLET PO SCH (09:35)
[2020-08-20] MEDS: carvediloL 3.125 MG TABLET PO SCH ×2 (09:35→20:41)
[2020-08-20] MEDS: hydrALAZINE 25 MG TABLET PO SCH ×3 (09:35→20:41)
[2020-08-20] MEDS: NYSTATIN CREAM 15 GM TUBE TOP SCH ×2 (09:37→20:41)
[2020-08-20] MEDS ORDERED: LIDOCAINE 1% 20 ML VIAL ONE (14:06)
[2020-08-20] MEDS ORDERED: NITROGLYCERIN DRIP 50 MG/250 ML BOTTLE IV ONE (14:06)
[2020-08-20] MEDS ORDERED: VERAPAMIL 5 MG/2 ML VIAL ONE (14:06)
[2020-08-20] MEDS ORDERED: HEPARIN/NACL 0.9% 2 UNITS/ML 1,000 ML IV ONE (14:06)
[2020-08-20] MEDS ORDERED: fentaNYL 100 MCG/2 ML VIAL ONE (14:28)
[2020-08-20] MEDS ORDERED: MIDAZOLAM 2 MG/2 ML VIAL ONE ×3 (14:28→15:40)
[2020-08-20] MEDS ORDERED: HEPARIN 5,000 UNIT/1 ML VIAL ONE (15:04)
[2020-08-20] MEDS ORDERED: ceFAZolin 1,000 MG VIAL ONE (16:04)
[2020-08-20] MEDS ORDERED: GLUCAGON 1 MG VIAL IM PRN (16:08)
[2020-08-20] MEDS ORDERED: DEXTROSE 50% 25 GM/50 ML VIAL IV PRN (16:08)
[2020-08-20] MEDS: ATORVASTATIN 20 MG TABLET PO SCH (20:41)
[2020-08-21] MEDS: INSULIN REGULAR 100 UNIT/ML SUBCUT SCH ×3 (00:07→12:42)
[2020-08-21 05:06] LABS: Basophils % 0.2 % (0.0-0.8); Eosinophils # 0.2 10*3/uL (0.0-0.87); Eosinophils % 2.1 % (0.00-10.9); Hemoglobin 8.1 GM/DL (12.0-16.0); Immature Granulocytes % 0.6 %; Immature Granulocytes Absolute 0.05 #; Lymphocytes # 0.5 10*3/uL (1.4-4.0); Lymphocytes % 6.2 % (21.3-54.2); Mean Corpuscular HGB Conc 28.9 GM/DL (32-36); Mean Corpuscular Volume 91.5 FL (87-102); Mean Platelet Volume 10.8 FL (9.6-12.0); Monocytes % 6.1 % (1.7-12.7); Neutrophils % 84.8 % (38.7-73.9); Platelet Count 377 T/CUMM (130-400); Red Blood Count 3.06 MC/CUMM (3.8-5.5); Red Cell Distribution Width 19.7 % (9.3-17.3); White Blood Count 8.6 T/CUMM (4-12)
[2020-08-21 05:17] LABS: Osmolality,Calculated 295.8 MOS/KG (273-304); Potassium 4.5 MMOL/L (3.5-5.1)
[2020-08-21 05:36] LABS: Hypochromasia 1+; Microcytosis 1+
[2020-08-21 05:37] LABS: Platelet Estimate Normal
[2020-08-21] MEDS: carvediloL 3.125 MG TABLET PO SCH (08:37)
[2020-08-21] MEDS: DOCUSATE SODIUM 100 MG CAPSULE PO SCH (08:37)
[2020-08-21] MEDS: hydrALAZINE 25 MG TABLET PO SCH ×2 (08:37→14:37)
[2020-08-21] MEDS: SEVELAMER CARBONATE 800 MG TABLET PO SCH ×3 (08:37→16:20)
[2020-08-21] MEDS: CLOPIDOGREL 75 MG TABLET PO SCH (08:37)
[2020-08-21] MEDS: ISOSORBIDE MONONITRATE 30 MG TABLET PO SCH (08:37)
[2020-08-21] MEDS: INSULIN GLARGINE 100 UNIT/ML SUBCUT SCH (08:38)
[2020-08-21] MEDS: ASPIRIN EC 81 MG TABLET PO SCH (08:38)
[2020-08-21] MEDS ORDERED: CHOLECALCIFEROL 1,000 UNIT TABLET PO SCH (09:00)
[2020-08-21] MEDS: NYSTATIN CREAM 15 GM TUBE TOP SCH (11:06)
[2020-08-21 16:24] VITALS: BP 124/72
[2020-08-21] MEDS ORDERED: FLUCONAZOLE 150 MG TABLET PO ONE (17:00)
[2020-08-21] MEDS ORDERED: ATORVASTATIN 40 MG TABLET PO SCH (21:00)
== END 2020-08-21 17:45 | disposition home or self-care (01) | DRG 280 ==
LOC: N.ED 00:28 → SUATTDRO 03:21 → N.EDINP 03:21 → N.TELES 04:42
PROVIDERS: ADMIT Internal Medicine; ATTEND Internal Medicine
PROC: CLCCHCL (ICD-10-PCS; 2020-08-20 10:15)

== ENCOUNTER 2021-08-26 | Observation (INO) ==
[2021-08-26] MEDS ORDERED: CLINDAMYCIN INJ 600 MG/50 ML PREMIX IV STA (00:32)
[2021-08-26 00:59] LABS: Basophils % 0.4 % (0.0-0.8); Eosinophils # 0.4 10*3/uL (0.0-0.87); Eosinophils % 4.9 % (0.00-10.9); Hematocrit 33.3 VOL% (35.7-47.0); Hemoglobin 10.7 GM/DL (12.0-16.0); Immature Granulocytes % 0.7 %; Immature Granulocytes Absolute 0.05 #; Lymphocytes # 0.9 10*3/uL (1.4-4.0); Lymphocytes % 12.4 % (21.3-54.2); Mean Corpuscular HGB Conc 32.1 GM/DL (32-36); Mean Corpuscular Volume 109.2 FL (87-102); Mean Platelet Volume 10.2 FL (9.6-12.0); Monocytes # 0.6 10*3/uL (0.11-0.8); Monocytes % 8.4 % (1.7-12.7); Neutrophils % 73.2 % (38.7-73.9); Platelet Count 211 T/CUMM (130-400); Red Blood Count 3.05 MC/CUMM (3.8-5.5); Red Cell Distribution Width 12.5 % (9.3-17.3); White Blood Count 7.5 T/CUMM (4-12)
[2021-08-26 01:14] LABS: Alanine Aminotransferase 25 U/L (13-56); Albumin 2.8 G/DL (3.4-5.0); Alkaline Phosphatase 190 U/L (45-117); Aspartate Amino Transferase 29 U/L (0-37); Bilirubin,Total < 0.39 MG/DL (0.20-1.00); Blood Urea Nitrogen 47 MG/DL (7-18); Calcium 9.7 MG/DL (8.5-10.1); Carbon Dioxide 29 MMOL/L (21-32); Chloride 100 MMOL/L (98-107); Estimated Glom Filtration Rate 8 ML/MIN; Glucose 129 MG/DL (74-106); Osmolality,Calculated 286.8 MOS/KG (273-304); Potassium 4.3 MMOL/L (3.5-5.1); Sodium 137 MMOL/L (136-145); Total Protein 7.9 G/DL (6.4-8.2)
[2021-08-26] MEDS ORDERED: hydrALAZINE 20 MG/1 ML VIAL IV STA (01:39)
[2021-08-26] MEDS ORDERED: ACETAMINOPHEN 325 MG TABLET PO PRN (02:06)
[2021-08-26] MEDS ORDERED: ONDANSETRON 4 MG/2 ML VIAL IV PRN (02:06)
[2021-08-26] MEDS ORDERED: GLUCAGON 1 MG VIAL IM PRN (02:06)
[2021-08-26] MEDS ORDERED: DEXTROSE 10% 250 ML BAG IV PRN (02:06)
[2021-08-26] MEDS ORDERED: hydrALAZINE 20 MG/1 ML VIAL IV PRN (02:15)
[2021-08-26] MEDS: HYDROmorphone 1 MG/1 ML SYRINGE IV PRN (03:05)
[2021-08-26 04:38] LABS: PT Patient Result 10.8 SECS (10.5-12.0); Partial Thromboplastin Time 25.6 SECS (23.8-32.1)
[2021-08-26] MEDS: ceFAZolin 2,000 MG/50 ML DUPLEX IV SCH ×3 (05:11→23:08)
[2021-08-26] MEDS: CLINDAMYCIN INJ 600 MG/50 ML PREMIX IV SCH ×3 (07:15→23:38)
[2021-08-26] MEDS: INSULIN REGULAR 100 UNIT/ML SUBCUT SCH ×4 (08:08→21:34)
[2021-08-26] MEDS: SEVELAMER CARBONATE 800 MG TABLET PO SCH ×3 (08:35→20:13)
[2021-08-26] MEDS: hydrALAZINE 25 MG TABLET PO SCH ×3 (08:58→21:34)
[2021-08-26] MEDS: PANTOPRAZOLE 40 MG TABLET PO SCH (08:58)
[2021-08-26] MEDS: DOCUSATE SODIUM 100 MG CAPSULE PO SCH ×2 (08:58→21:34)
[2021-08-26] MEDS: ASPIRIN EC 81 MG TABLET PO SCH (08:58)
[2021-08-26] MEDS: ISOSORBIDE MONONITRATE 30 MG TABLET PO SCH ×2 (08:58→21:34)
[2021-08-26] MEDS: carvediloL 6.25 MG TABLET PO SCH ×2 (08:58→21:34)
[2021-08-26] MEDS ORDERED: CLOPIDOGREL 75 MG TABLET PO SCH (09:00)
[2021-08-26] MEDS ORDERED: DEXAMETHASONE 4 MG/1 ML VIAL ONE (15:11)
[2021-08-26] MEDS ORDERED: LIDOCAINE 2% 5 ML VIAL ONE (15:11)
[2021-08-26] MEDS ORDERED: ONDANSETRON 4 MG/2 ML VIAL ONE (15:11)
[2021-08-26] MEDS ORDERED: fentaNYL 100 MCG/2 ML VIAL ONE (15:11)
[2021-08-26] MEDS ORDERED: propofoL 200 MG/20 ML VIAL IV ONE (15:11)
[2021-08-26] MEDS ORDERED: SEVOFLURANE 1 UNIT/15 MINUTE INH ONE ×2 (15:11→15:59)
[2021-08-26] MEDS ORDERED: PHENYLEPHRINE 1 MG/10 ML SYRINGE IV ONE ×2 (15:54→16:26)
[2021-08-26] MEDS ORDERED: SODIUM CHLORIDE 0.9% 250 ML IV ONE (15:59)
[2021-08-26] MEDS ORDERED: HYDROmorphone 1 MG/1 ML SYRINGE IV PRN (16:42)
[2021-08-26] MEDS ORDERED: HEPARIN 10,000 UNIT/10 ML VIAL IV ONE (17:45)
[2021-08-26] MEDS ORDERED: INSULIN GLARGINE 100 UNIT/ML SUBCUT SCH (21:00)
[2021-08-26] MEDS ORDERED: ATORVASTATIN 40 MG TABLET PO SCH (21:00)
[2021-08-27] MEDS: ceFAZolin 2,000 MG/50 ML DUPLEX IV SCH ×2 (05:08→14:47)
[2021-08-27] MEDS: CLINDAMYCIN INJ 600 MG/50 ML PREMIX IV SCH (07:14)
[2021-08-27] MEDS: ISOSORBIDE MONONITRATE 30 MG TABLET PO SCH (08:41)
[2021-08-27] MEDS: carvediloL 6.25 MG TABLET PO SCH (08:41)
[2021-08-27] MEDS: ASPIRIN EC 81 MG TABLET PO SCH (08:41)
[2021-08-27] MEDS: hydrALAZINE 25 MG TABLET PO SCH (08:41)
[2021-08-27] MEDS: PANTOPRAZOLE 40 MG TABLET PO SCH (08:41)
[2021-08-27] MEDS: SEVELAMER CARBONATE 800 MG TABLET PO SCH ×2 (08:41→14:47)
[2021-08-27] MEDS: DOCUSATE SODIUM 100 MG CAPSULE PO SCH (08:41)
[2021-08-27] MEDS: INSULIN REGULAR 100 UNIT/ML SUBCUT SCH ×2 (08:43→14:47)
[2021-08-27] MEDS: HYDROmorphone 1 MG/1 ML SYRINGE IV PRN (10:43)
[2021-08-27 12:55] VITALS: BP 148/86
== END 2021-08-27 14:53 | disposition home or self-care (01) ==
LOC: N.EDINP → N.ED → SUATTDRO 08:39 → N.5E 17:13
PROVIDERS: ADMIT Internal Medicine; ATTEND Internal Medicine

== ENCOUNTER 2021-09-18 22:50 | Observation (INO) ==
[2021-09-18] MEDS ORDERED: SODIUM CHLORIDE 0.9% 1,000 ML IV STA (23:10)
[2021-09-18] MEDS ORDERED: MORPHINE 10 MG/1 ML VIAL IV STA (23:11)
[2021-09-18] MEDS ORDERED: ONDANSETRON 4 MG/2 ML VIAL IV STA (23:11)
[2021-09-18] MEDS ORDERED: CLINDAMYCIN INJ 900 MG/50 ML PREMIX IV STA (23:20)
[2021-09-18] MEDS ORDERED: MORPHINE 2 MG/1 ML SYRINGE ONE (23:28)
[2021-09-18 23:37] LABS: Basophils % 0.5 % (0.0-0.8); Eosinophils # 0.2 10*3/uL (0.0-0.87); Eosinophils % 3.3 % (0.00-10.9); Hematocrit 29.7 VOL% (35.7-47.0); Hemoglobin 9.6 GM/DL (12.0-16.0); Immature Granulocytes % 0.3 %; Immature Granulocytes Absolute 0.02 #; Lymphocytes # 0.8 10*3/uL (1.4-4.0); Lymphocytes % 10.8 % (21.3-54.2); Mean Corpuscular HGB Conc 32.3 GM/DL (32-36); Mean Corpuscular Volume 109.2 FL (87-102); Mean Platelet Volume 10.2 FL (9.6-12.0); Monocytes # 0.7 10*3/uL (0.11-0.8); Monocytes % 10.1 % (1.7-12.7); Platelet Count 222 T/CUMM (130-400); Red Blood Count 2.72 MC/CUMM (3.8-5.5); Red Cell Distribution Width 12.8 % (9.3-17.3); White Blood Count 7.3 T/CUMM (4-12)
[2021-09-18] MEDS ORDERED: ACETAMINOPHEN 325 MG TABLET PO PRN (23:42)
[2021-09-18] MEDS ORDERED: ONDANSETRON 4 MG/2 ML VIAL IV PRN (23:42)
[2021-09-18 23:54] LABS: Calcium 9.4 MG/DL (8.5-10.1); Potassium 4.4 MMOL/L (3.5-5.1)
[2021-09-19] MEDS ORDERED: METOPROLOL TARTRATE 5 MG/5 ML VIAL IV STA (00:09)
[2021-09-19] MEDS: CLINDAMYCIN INJ 900 MG/50 ML PREMIX IV SCH ×3 (08:37→23:31)
[2021-09-19] MEDS: PANTOPRAZOLE 40 MG TABLET PO SCH (08:37)
[2021-09-19] MEDS: SEVELAMER CARBONATE 800 MG TABLET PO SCH ×2 (12:23→16:40)
[2021-09-19] MEDS: hydrALAZINE 25 MG TABLET PO SCH ×3 (15:14→22:23)
[2021-09-19] MEDS ORDERED: ATORVASTATIN 40 MG TABLET PO SCH (21:00)
[2021-09-19] MEDS ORDERED: INSULIN GLARGINE 100 UNIT/ML SUBCUT SCH (21:00)
[2021-09-19] MEDS: ISOSORBIDE MONONITRATE 30 MG TABLET PO SCH (21:48)
[2021-09-19] MEDS: carvediloL 6.25 MG TABLET PO SCH (22:24)
[2021-09-20 08:52] LABS: Basophils % 0.5 % (0.0-0.8); Eosinophils # 0.3 10*3/uL (0.0-0.87); Eosinophils % 5.9 % (0.00-10.9); Hematocrit 25.8 VOL% (35.7-47.0); Hemoglobin 8.2 GM/DL (12.0-16.0); Immature Granulocytes % 0.4 %; Immature Granulocytes Absolute 0.02 #; Lymphocytes # 0.7 10*3/uL (1.4-4.0); Lymphocytes % 12.5 % (21.3-54.2); Mean Corpuscular HGB Conc 31.8 GM/DL (32-36); Mean Corpuscular Volume 109.8 FL (87-102); Mean Platelet Volume 10.5 FL (9.6-12.0); Monocytes # 0.5 10*3/uL (0.11-0.8); Monocytes % 8.2 % (1.7-12.7); Neutrophils % 72.5 % (38.7-73.9); Platelet Count 187 T/CUMM (130-400); Red Blood Count 2.35 MC/CUMM (3.8-5.5); Red Cell Distribution Width 13.2 % (9.3-17.3); White Blood Count 5.6 T/CUMM (4-12)
[2021-09-20] MEDS: CLINDAMYCIN INJ 900 MG/50 ML PREMIX IV SCH (08:56)
[2021-09-20] MEDS: hydrALAZINE 25 MG TABLET PO SCH ×2 (08:57→16:57)
[2021-09-20] MEDS: carvediloL 6.25 MG TABLET PO SCH (08:57)
[2021-09-20] MEDS: PANTOPRAZOLE 40 MG TABLET PO SCH (08:57)
[2021-09-20] MEDS: SEVELAMER CARBONATE 800 MG TABLET PO SCH ×3 (08:57→16:57)
[2021-09-20] MEDS: ISOSORBIDE MONONITRATE 30 MG TABLET PO SCH (08:57)
[2021-09-20] MEDS ORDERED: ASPIRIN EC 81 MG TABLET PO SCH (09:00)
[2021-09-20 11:59] LABS: Bacteria,Urine Occasional /HPF (Few); RBC,Urine 5 /HPF (0-4); Squamous Epithelial Cell,Urine Occasional /HPF (0-10)
[2021-09-20 12:00] LABS: Bilirubin,Urine Negative (Negative); Blood, Urine Trace mg/dL (Negative); Glucose,Urine (UA) Negative (Negative); Ketones,Urine Negative (Negative); Nitrite,Urine Negative (Negative); Protein,Urine 100 mg/dL (Negative); Urine Appearance Clear (Clear); Urine Color Yellow (Yellow); Urine Specific Gravity 1.015 (1.001-1.035); Urine Urobilinogen 0.2 eU/dL (<2.0); Urine pH 8.5 (4.5-8.0)
[2021-09-20] MEDS ORDERED: HEPARIN 10,000 UNIT/10 ML VIAL IV PRN (13:46)
[2021-09-20 17:02] VITALS: BP 110/39
== END 2021-09-20 18:12 | disposition home or self-care (01) ==
LOC: N.ED 22:50 → N.EDINP 22:50 → N.3E 09-19 00:44
PROVIDERS: ADMIT Student in an Organized Health Care Education/Training Program; ATTEND Student in an Organized Health Care Education/Training Program